=== PATIENT | female | born 1960 | race Caucasian/White ===

== ENCOUNTER 2019-01-11 14:06 | Emergency (ER) | payer OTHER ==
[~2019-01-11] VITALS: Ht 162.6 cm; Wt 81.2 kg
[2019-01-11 15:19] VITALS: BP 179/70
--- NOTE | 2019-01-11 15:43 | NUR ---
58 Y F BIB SELF . REFERED FROM CLINIC FOR HIGH BP X TODAY. PT STATES BP WAS IN THE 200S THIS MORNING. GOT CLONIDINE 0.2 MG AT 12.[address] TA. BP 184/76, BLOOD SUGAR 262 AT THIS TIME. DENIES HEADACHE, DIZINESS OR N/V/D. PT IS AA0X4. BED IS DOWN, LOCKED, BED RAIL X 1. ERMD NOTIFIED OF PATIENT STATUS. HX: HTN, HIGH CHOLESTEROL, DM MED: ATORVASTATIN,METOPROLOL,ASPIRIN,LISINOPRIL, INSULIN
--- NOTE | 2019-01-11 16:15 | NUR ---
DR ALFORD AT BEDSIDE
[2019-01-11] MEDS ORDERED: METOPROLOL SUCCINATE 50 MG TABER PO SCH (16:20)
--- NOTE | 2019-01-11 16:38 | NUR ---
METROPOLOL OUT IN [facility]. CALLED PHARMACY.
[2019-01-11] MEDS ORDERED: METOPROLOL 50 MG TAB ONE (17:20)
--- NOTE | 2019-01-11 17:31 | NUR ---
MADE AWARE OF PTS BP BEFORE DISCHARGE. BP IS 192/82
[2019-01-11 17:36] VITALS: BP 192/82
--- NOTE | 2019-01-11 17:38 | NUR ---
Patient discharged with v/s stable. Written and verbal after care instructions given and explained. Patient alert, oriented and verbalized understanding of instructions. Ambulatory with steady gait. All questions addressed prior to discharge. ID band removed. Patient advised to follow up with PMD. Rx of ARUN WILSON given. Patient educated on indication of medication including possible reaction and side effects. Opportunity to ask questions provided and answered.
== END 2019-01-11 17:38 | disposition home or self-care (01) ==
LOC: MED 14:06
DX: J40 Bronchitis, not specified as acute or chronic (principal); J45.909 Unspecified asthma, uncomplicated; E11.9 Type 2 diabetes mellitus without complications; I10 Essential (primary) hypertension; Z90.49 Acquired absence of other specified parts of digestive tract
CPT/HCPCS: 81002; 81025; 82948; 99283